=== PATIENT | male | born 1950 | race Two or more races ===

== ENCOUNTER 2021-12-27 15:56 | Emergency (ER) | payer MEDICARE, MEDICAID ==
[~2021-12-27] VITALS: Ht 175.3 cm; Wt 60.5 kg
[~2021-12-27 15:56] MED LIST: CHOL100046 PO; NOR5T PO; metoprolol tartrate tablet PO; tamsulosin capsule PO
[2021-12-27 16:39] VITALS: BP 142/99
== END 2021-12-27 19:22 | disposition home or self-care (01) ==
LOC: ER 15:56
DX: T82.9XXA Unspecified complication of cardiac and vascular prosthetic device, implant and graft, initial encounter (principal); N18.9 Chronic kidney disease, unspecified; Z79.899 Other long term (current) drug therapy
CPT/HCPCS: 99281